=== PATIENT | female | born 1995 | race Caucasian/White ===

== ENCOUNTER 2020-11-22 20:18 | Emergency (ER) | payer OTHER ==
[2020-11-22 20:38] VITALS: BP 101/58
[2020-11-22 23:11] LABS: APPEARANCE,URINE CLOUDY; BILIRUBIN,URINE NEGATIVE (NEGATIVE); COLOR,URINE YELLOW; GLUCOSE, URINE NEGATIVE (NEGATIVE); KETONES,URINE 80 mg/dL (NEGATIVE); LEUKOCYTE ESTERASE,URINE LARGE (NEGATIVE); NITRITE,URINE POSITIVE (NEGATIVE); PROTEIN,URINE 30 mg/dL (NEGATIVE); URINE SPECIFIC GRAVITY 1.025; UROBILINOGEN,URINE NEGATIVE mg/dL (<2.0)
--- NOTE | 2020-11-22 23:24 | ER Document Report ---
ED Medical Screen (RME) - General Chief Complaint: Urinary Problem Stated Complaint: POSSIBLE UTI -34WKS PREG Time Seen by Provider: 11/22/20 23:12 Mode of Arrival: Ambulatory Information source: Patient - HPI Patient complains to provider of: Back pain, abdominal pain, dysuria Notes: 11/22/20 23:22 Patient is here with complaints of some right-sided lower abdominal pain and some back pain on the right. Patient is 34 weeks . This is her first . She states that she was recently admitted to the hospital for pyelonephritis. She states that today she started having some burning with urination. She reports being seen by her MANAGER [employer] and they told her that her urine looked fine. She started having increasing pain so she went up to labor and delivery and was reportedly told to come down to the ER for evaluation. On my evaluation the patient continues to complain of right lower abdominal pain as well as some right flank pain/back pain. No fevers. She does complain of nausea. Exam: Gravid abdomen. Tenderness on the right side of the abdomen and right- sided CVA tenderness to percussion. Lungs clear and equal throughout. Mild tachycardia. An initial examination was made on the patient as part of the triage process Case was discussed with. Dr. Simpson, recommendation is for patient to go up to labor and delivery to have a labor ruled out since she is 34 weeks and having back and abdominal pain. Patient will be taken up to labor and delivery for evaluation. Physical Exam - Vital signs Vitals: Temp Pulse Resp BP Pulse Ox 97.8 F 118 H 17 101/58 L 97 11/22/20 20:34 11/22/20 20:34 11/22/20 20:34 11/22/20 20:34 11/22/20 20:34 Course - Vital Signs Vital signs: Temp Pulse Resp BP Pulse Ox 97.8 F 118 H 17 101/58 L 97 11/22/20 20:34 11/22/20 20:34 11/22/20 20:34 11/22/20 20:34 11/22/20 20:34 - Laboratory Results Laboratory Results Interpreted: 11/22/20 20:24 Urine Protein 30 H Urine Ketones 80 H Urine Blood MODERATE H Urine Nitrite POSITIVE H Ur Leukocyte Esterase LARGE H Urine Ascorbic Acid 20 H
== END 2020-11-22 23:40 | disposition admitted as inpatient to this hospital (09) ==
LOC: ER 20:18
DX: O26.893 Other specified pregnancy related conditions, third trimester (principal); R10.31 Right lower quadrant pain; R10.9 Unspecified abdominal pain; R10.819 Abdominal tenderness, unspecified site; R30.0 Dysuria; R11.0 Nausea; O99.891 Other specified diseases and conditions complicating pregnancy; M54.9 Dorsalgia, unspecified; Z87.440 Personal history of urinary (tract) infections; Z3A.34 34 weeks gestation of pregnancy
CPT/HCPCS: 81001; 99283

== ENCOUNTER 2020-11-22 23:28 | Outpatient (CLI) | payer OTHER ==
[2020-11-22] MEDS ORDERED: CEFTRIAXONE 1 GM/D5W RTU 1 GM/50 ML RTUPB IV ONE (23:47)
[2020-11-22] MEDS ORDERED: RINGERS SOLUTION,LACTATED 1,000 ML IV ONE (23:48)
[2020-11-22] MEDS ORDERED: CEFTRIAXONE INJ 1000 MG VIAL ONE (23:55)
[2020-11-23 00:32] LABS: ABSOLUTE LYMPHOCYTES (AUTO) 1.2 10^3/uL (0.5-4.7); ABSOLUTE MONOCYTES (AUTO) 0.8 10^3/uL (0.1-1.4); ABSOLUTE NEUT (AUTO) 10.8 10^3/uL (1.7-8.2); BASOPHILS % (AUTO) 0.1 % (0-2); EOSINOPHILS % (AUTO) 0.3 % (0-6); HEMATOCRIT 32.7 % (36.0-47.0); HEMOGLOBIN 11.3 g/dL (12.0-15.5); LYMPHOCYTES % (AUTO) 9.2 % (13-45); MEAN CORPUSCULAR HEMOGLOBIN 30.2 pg (27.0-33.4); MEAN CORPUSCULAR HGB CONC 34.5 g/dL (32.0-36.0); MEAN CORPUSCULAR VOLUME 87 fl (80-97); MONOCYTES % (AUTO) 6.5 % (3-13); PLATELET COUNT 228 10^3/uL (150-450); RED BLOOD COUNT 3.74 10^6/uL (3.72-5.28); RED CELL DISTRIBUTION WIDTH 13.6 % (11.5-14.0); SEGMENTED NEUTROPHILS % (AUTO) 83.9 % (42-78); TOTAL CELLS COUNTED % (AUTO) 100 %; WHITE BLOOD COUNT 12.8 10^3/uL (4.0-10.5)
--- NOTE | 2020-11-23 01:08 | Non Stress Test Report ---
Non Stress Test Datetime Report Generated by CPN: 11/23/2020 01:08 DEMOGRAPHIC EGA NST: 33.3 INDICATION Indication for Study (NST) Other: LC VITAL SIGNS Temperature - NST: 98.4 Pulse - NST: 87 RESP - NST: 24 NBPSYS NST: 105 NBPDIA NST: 51 URINE RESULTS Urine Blood - NST: Negative MONITORING Monitor Explained: Monitor Explained; Test Explained; Patient Verbalized Understanding Time on Monitor: 11/23/2020 00:00 Time off Monitor: 11/23/2020 01:05 NST Duration: 65 NST INTERVENTIONS NST Interventions: PO Hydration; IV Fluids; Reposition Patient Physician Notified NST: sahu BABY A: [id number] BABY A Movement : Present Contraction Frequency : none FHR Baseline : 125 Accelerations : 15X15 Decelerations : None Variability : Moderate 6-25bpm NST Review: Meets Criteria for Reactive NST NST Review and Verified By : SHAUN HoranT Results: Reactive NST REPORT Report Trigger: Send Report
--- NOTE | 2020-11-23 01:16 | L&D Progress Notes ---
PROGRESS NOTES Datetime Report Generated by CPN: 11/23/2020 01:15 PROGRESS NOTE Comment: She presents with UTI symptoms. She is now better after antibiotics and fluids. Home on macrobid to followup in the office this week. LAST VAGINAL EXAM-NURSING Nursing Exam Contractions: pt. denies feeling ctx's SIGNATURE SIGNATURE: [id number] Signature: with User ID: [email or web address]
== END 2020-11-23 01:29 | disposition home or self-care (01) ==
LOC: LC 23:28
PROVIDERS: ATTEND Obstetrics & Gynecology
DX: O23.43 Unspecified infection of urinary tract in pregnancy, third trimester (principal); B96.89 Other specified bacterial agents as the cause of diseases classified elsewhere; Z3A.33 33 weeks gestation of pregnancy
CPT/HCPCS: 59025; 36415; 87086; 85025; 87088; 87186; J0696